=== PATIENT | female | born 1950 | race Caucasian/White ===

== ENCOUNTER 2017-04-22 17:25 | Emergency (ER) | payer BC, OTHER ==
[~2017-04-22] VITALS: Ht 162.6 cm; Wt 77.0 kg
[~2017-04-22 17:25] MED LIST: ASPI81 PO; BENI20TA25 PO; COQ1200C3 PO; FISH500C PO; GLUC750T22 PO; LORTA5; MAGN400T19 PO; OYST500T71 PO; RED600TA PO; VITA100017 PO; VITA20002 PO; VITA400C70 PO; [UNRECOGNIZED DRUG - OTHER] PO; [UNRECOGNIZED DRUG - OTHER] PO
[2017-04-22 17:30] VITALS: BP 185/104; PULSE 99; RESP 14; TEMP 99.2; O2SAT 97
[2017-04-22 19:00] VITALS: BP 166/86; PULSE 91; RESP 18; O2SAT 98
[2017-04-22] MEDS ORDERED: MULT1TAB18 (19:07)
[2017-04-22] MEDS ORDERED: ASCO100016 (19:07)
[2017-04-22] MEDS ORDERED: LOSA25TA PO (19:07)
[2017-04-22] MEDS ORDERED: OMEP20TA PO (19:07)
[2017-04-22] MEDS ORDERED: CURCPOW (19:07)
[2017-04-22] MEDS ORDERED: FERR28TA (19:16)
[2017-04-22] MEDS ORDERED: LACTCAP8 PO (19:16)
[2017-04-22] MEDS ORDERED: CURAMED (19:16)
[2017-04-22] MEDS ORDERED: [UNRECOGNIZED DRUG - OTHER] (19:16)
[2017-04-22] MEDS ORDERED: TRIPHALA (19:16)
[2017-04-22] MEDS ORDERED: GLUC1TAB38 (19:16)
[2017-04-22] MEDS ORDERED: MAGN400T24 (19:16)
[2017-04-22] MEDS ORDERED: [UNRECOGNIZED DRUG - OTHER] (19:16)
[2017-04-22] MEDS ORDERED: OMEG10004 (19:16)
[2017-04-22] MEDS ORDERED: [UNRECOGNIZED DRUG - OTHER] (19:16)
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
[2017-04-22] MEDS ORDERED: ONDANSETRON ODT 4 MG TAB PO ONE (20:00)
[2017-04-22 20:05] VITALS: BP 155/78; PULSE 81; RESP 17; O2SAT 97
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
[2017-04-22] MEDS ORDERED: ONDA4TAB7 SL (20:27)
== END 2017-04-22 21:24 | disposition home or self-care (01) ==
LOC: PHED 17:25
DX: R42 Dizziness and giddiness (principal); I10 Essential (primary) hypertension; K21.9 Gastro-esophageal reflux disease without esophagitis; M19.90 Unspecified osteoarthritis, unspecified site; V43.51XA Car driver injured in collision with sport utility vehicle in traffic accident, initial encounter; Y93.9 Activity, unspecified; Y92.9 Unspecified place or not applicable; Y99.9 Unspecified external cause status
CPT/HCPCS: 70450; 71020; 72125; 99285